=== PATIENT | male | born 1960 | race Caucasian/White ===

== ENCOUNTER → 2020-09-14 11:15 | Outpatient (BNVA) | payer SELFPAY | PROVIDERS: PCP Nurse Practitioner Family; Visit Provider Nurse Practitioner Family | DX: E78.9 Disorder of lipoprotein metabolism, unspecified (principal); I25.89 Other forms of chronic ischemic heart disease; I42.8 Other cardiomyopathies | CPT/HCPCS: 80061; 84450; 84460 ==